=== PATIENT | female | born 2000 | race Caucasian/White ===

== ENCOUNTER → 2019-08-03 | Outpatient (CLI) | payer SELFPAY ==
[~2019-08-03] MED LIST: CATHETER FLUSH 10 ML SYR IV PRN; HOLD METFORMIN - RECEIVED CONTRAST 20 ML VIAL IV SCH; IOHEXOL 350 MG/ML 100 ML (OMNIPAQUE 350) VIAL IV ONE; NS 100 ML (IVPB) BAG IV ONE
--- NOTE | 2019-08-03 10:01 | Diagnostic Imaging Report ---
PROCEDURE: CT abdomen and pelvis with contrast. TECHNIQUE: Multiple contiguous axial images were obtained through the abdomen and pelvis after administration of intravenous contrast. Auto Exposure Controls were utilized during the CT exam to meet ALARA standards for radiation dose reduction. INDICATION: 2 weeks history of pelvic pain. No nausea or vomiting. No priors. FINDINGS: There is left adnexal cystic lesion measuring 4.1 x 3.0 cm likely ovarian, pelvic ultrasound suggested as its further evaluation. The uterus and right adnexa appeared normal. There is a small amount of pelvic free fluid in the cul-de-sac and posterior to the right adnexa. Urinary tracts unobstructed, nonfocal and nonacute. Liver, spleen, adrenals, pancreas and gallbladder all negative. The aortoiliac and mesenteric vessels patent and nonaneurysmal. The appendix visualized and normal. There is no diverticulitis. No ileus or bowel obstruction. IMPRESSION: 1. Left adnexal cyst measured 4.1 cm. Correlative ultrasound recommended. 2. Small volume pelvic free fluid likely physiologic. No other significant finding. Dictated by: Dictated on workstation # [id number]
== END ==
LOC: RAD 08:51
PROVIDERS: ATTEND Nurse Practitioner Family
DX: N83.8 Other noninflammatory disorders of ovary, fallopian tube and broad ligament (principal); R18.8 Other ascites
CPT/HCPCS: 74177

== ENCOUNTER 2020-01-03 17:30 | Emergency (ER) | payer SELFPAY ==
[~2020-01-03] VITALS: Ht 170 cm; Wt 123.0 kg
--- NOTE | 2020-01-03 17:58 | ED General ---
General Chief Complaint: Cough/Cold/Flu Symptoms Stated Complaint: COVID POSITIVE/CP/SOB Nursing Triage Note: PT STATES WAS TESTED COVID +YESTERDAY, PT STATES SX STARTED 3 DAYS PRIOR TO TEST. CO OF CHEST BURNING Nursing Sepsis Screen: Possible Sepsis Risk Source of Information: Patient Exam Limitations: No Limitations History of Present Illness Date Seen by Provider: Jan 03, 2020 Time Seen by Provider: 17:40 Initial Comments This 19-year-old young lady presents to the emergency room with COVID-19 symptoms. She has been ill for about 3 days and had a positive Covid test. She presents to the ER today because of increasing shortness of breath and chest pain, particularly burning on inspiration, that she rates as 8 out of 10. Vital signs are unremarkable. Patient is also anxious and is treated for anxiety. She has asthma which she has been successfully treating with her inhaler. She has no wheezing on exam today. Allergies and Home Medications Allergies Coded Allergies: No Allergy Information Available (Unverified , 08/03/19) Patient Home Medication List Home Medication List Reviewed: Yes Review of Systems Review of Systems Constitutional: fever EENTM: nose congestion Respiratory: see HPI, cough Cardiovascular: see HPI Gastrointestinal: no symptoms reported Genitourinary: no symptoms reported Musculoskeletal: muscle pain Skin: no symptoms reported Psychiatric/Neurological: See HPI, Anxiety Immunological/Allergic: no symptoms reported Past Ojstmna-Vlffyd-Adrvle Hx Past Med/Social Hx: Reviewed Nursing Past Med/Soc Hx Patient Social History Alcohol Use: Denies Use Recreational Drug Use: No Smoking Status: Never a Smoker Recent Foreign Travel: No Contact w/Someone Who Travel: No Recent Infectious Disease Expo: No Recent Hopitalizations: No Physical Abuse: No Sexual Abuse: No Past Medical History Surgeries: No Respiratory: Yes Asthma Cardiac: No Neurological: No : No Last Menstrual Period: Dec 31, 2019 Genitourinary: No Gastrointestinal: No Musculoskeletal: No Endocrine: No HEENT: No Cancer: No Psychosocial: Yes Anxiety Integumentary: No Physical Exam Vital Signs Vital Signs - First Documented 01/03/20 01/03/20 17:40 19:30 Temp 36.5 Pulse 107 Resp 22 B/P (MAP) 160/104 (122) Pulse Ox 98 O2 Delivery Room Air Capillary Refill : Less Than 3 Seconds Height, Weight, BMI Height: '" Weight: lbs. oz. kg; 42.00 BMI Method: General Appearance: WD/WN, Anxious HEENT: PERRL/EOMI, Normal ENT Inspection, Pharynx Normal Neck: Normal Inspection Respiratory: Lungs Clear, Normal Breath Sounds, No Accessory Muscle Use; No Wheezing Cardiovascular: Regular Rate, Rhythm, No Edema, No Murmur, Normal Peripheral Pulses Gastrointestinal: Normal Bowel Sounds, Non Tender, Soft Extremity: Normal Inspection, Non Tender, No Calf Tenderness, No Pedal Edema Neurologic/Psychiatric: Alert, Oriented x3, No Motor/Sensory Deficits, load out person II- XII Norm as Tested, Other (Anxious) Skin: Normal Color, Warm/Dry Progress/Results/Core Measures Suspected Sepsis Recent Fever Within 48 Hours: Yes Infection Criteria Present: Documented Infection New/Unexplained Altered Menta: No Sepsis Screen: Possible Sepsis Risk SIRS Temperature: Pulse: 107 Respiratory Rate: 22 Laboratory Tests 01/03/20 18:26: White Blood Count 3.5L Blood Pressure 160 /104 Mean: 122 Laboratory Tests 01/03/20 17:57: Creatinine 0.68, Total Bilirubin 0.2 01/03/20 18:26: Platelet Count 204 Results/Orders Lab Results Laboratory Tests Test 01/03/20 17:57 01/03/20 18:26 Range/Units D-Dimer 0.35 0.00-0.49 UG/ML Sodium Level 140 135-145 MMOL/L Potassium Level 4.1 3.6-5.0 MMOL/L Chloride Level 108 H 98-107 MMOL/L Carbon Dioxide Level 19 L 21-32 MMOL/L Anion Gap 13 5-14 MMOL/L Blood Urea Nitrogen 7 7-18 MG/DL Creatinine 0.68 0.60-1.30 MG/DL Estimat Glomerular Filtration Rate > 60 BUN/Creatinine Ratio 10 Glucose Level 94 70-105 MG/DL Calcium Level 8.5 8.5-10.1 MG/DL Corrected Calcium 8.3 L 8.5-10.1 MG/DL Total Bilirubin 0.2 0.1-1.0 MG/DL Aspartate Amino Transf (AST/SGOT) 44 H 5-34 U/L Alanine Aminotransferase (ALT/SGPT) 47 0-55 U/L Alkaline Phosphatase 81 40-136 U/L C-Reactive Protein High Sensitivity 0.34 0.00-0.50 MG/DL Total Protein 7.7 6.4-8.2 GM/DL Albumin 4.2 3.2-4.5 GM/DL Serum Test, Qualitative NEGATIVE NEGATIVE White Blood Count 3.5 L 4.3-11.0 10^3/uL Red Blood Count 3.67 L 3.80-5.11 10^6/uL Hemoglobin 11.1 L 11.5-16.0 g/dL Hematocrit 35 35-52 % Mean Corpuscular Volume 94 80-99 fL Mean Corpuscular Hemoglobin 30 25-34 pg Mean Corpuscular Hemoglobin Concent 32 32-36 g/dL Red Cell Distribution Width 12.5 10.0-14.5 % Platelet Count 204 130-400 10^3/uL Mean Platelet Volume 12.3 H 9.0-12.2 fL Immature Granulocyte % (Auto) 0 % Neutrophils (%) (Auto) 37 L 42-75 % Lymphocytes (%) (Auto) 52 H 12-44 % Monocytes (%) (Auto) 9 0-12 % Eosinophils (%) (Auto) 2 0-10 % Basophils (%) (Auto) 0 0-10 % Neutrophils # (Auto) 1.3 L 1.8-7.8 10^3/uL Lymphocytes # (Auto) 1.8 1.0-4.0 10^3/uL Monocytes # (Auto) 0.3 0.0-1.0 10^3/uL Eosinophils # (Auto) 0.1 0.0-0.3 10^3/uL Basophils # (Auto) 0.0 0.0-0.1 10^3/uL Immature Granulocyte # (Auto) 0.0 0.0-0.1 10^3/uL My Orders Orders - KEVIN PIEDRA MD Cbc With Automated Diff (01/03/20 17:51) Comprehensive Metabolic Panel (01/03/20 17:51) Hs C Reactive Protein (01/03/20 17:51) Fibrin Degradation Products (01/03/20 17:51) Hcg,Qualitative Serum (01/03/20 17:51) Chest 1 View, Ap/Pa Only (01/03/20 17:51) Ed Iv/Invasive Line Start (01/03/20 17:51) Ketorolac Injection (Toradol Injection) (01/03/20 19:00) Vital Signs/I&O Capillary Refill : Less Than 3 Seconds Blood Pressure Mean: 122 Progress Note #1: Time: 17:57 Progress Note Patient was seen and examined. Because of the increasing pleuritic chest pain we will do some basic labs including a D-dimer and obtain a chest x-ray. Progress Note #2: Progress Note Labs did not suggest coinfection. Chest x-ray was consistent with COVID-19. Patient was given reassurance and discharged. Diagnostic Imaging Diagonstic Imaging: Xray Plain Films/CT/US/NM/MRI: chest Comments NAME: [facility] REC#: [id number] PT STATUS: REG ER : 2000 PHYSICIAN: KEVIN PIEDRA MD ADMIT DATE: 01/03/20/ER Signed Date of Exam:01/03/20 CHEST 1 VIEW, AP/PA ONLY EXAMINATION: Chest radiograph, portable AP view. DATE: 01/03/2020 7:26 PM. INDICATION: 19-year-old female, Covid positive. Chest pain. COMPARISON: None. FINDINGS: Heart size and mediastinal contours are unremarkable. There is no identified pneumothorax. There is no large pleural effusion. There are streaky opacities in the right lower lobe. There is questionable hazy lung opacification. There are technical limitations of the exam relating to patient body habitus and difficulties with exposure. IMPRESSION: 1. Streaky opacities in the right lower lobe which may relate to atelectasis and/or infiltrate. 2. Questionable hazy lung opacities which could be seen with multifocal pneumonia including atypical infectious etiologies such is Covid-19. Dictated by: Dictated on workstation # [id number] Dict: 01/03/201926 Trans: 01/03/201999 [facility] [id number] Interpreted by: MORENO BERKOWITZ MD Electronically signed by: MORENO BERKOWITZ MD 01/03/201999 Departure Impression Primary Impression: Pleuritic chest pain Additional Impression: COVID-19 Disposition: 01 HOME, SELF-CARE Condition: Stable Departure-Patient Inst. Decision time for Depature: 18:51 Referrals: NO,LOCAL PHYSICIAN (PCP/Family) Primary Care Physician Patient Instructions: Coronavirus Disease 2019 (COVID-19) Overview Add. Discharge Instructions: You may continue using albuterol for wheezing or shortness of breath as previously prescribed. Drink plenty of clear liquids well-hydrated. Take a multivitamin for your overall nutrition. Some COVID regimens also encourage additional vitamin C, vitamin D, elderberry, and zinc. Change positions often and rotate between sleeping on your stomach and your back throughout the night. This will help with oxygenation and shortness of breath. Take ibuprofen up to 600 mg and Tylenol up to 1000 mg every 6 hours as needed for pain. Return to care if you have worsening of symptoms despite following these measures. All discharge instructions reviewed with patient and/or family. Voiced und erstanding. KEVIN PIEDRA MD Jan 03, 2020 17:58
[2020-01-03 18:24] LABS: ALBUMIN 4.2 GM/DL (3.2-4.5)
[2020-01-03 18:25] LABS: CHLORIDE 108 MMOL/L (98-107); POTASSIUM 4.1 MMOL/L (3.6-5.0); SODIUM 140 MMOL/L (135-145)
[2020-01-03 18:26] LABS: CALCIUM 8.5 MG/DL (8.5-10.1)
[2020-01-03 18:27] LABS: GLUCOSE 94 MG/DL (70-105); TOTAL PROTEIN 7.7 GM/DL (6.4-8.2)
[2020-01-03 18:28] LABS: CARBON DIOXIDE 19 MMOL/L (21-32)
[2020-01-03 18:29] LABS: BILIRUBIN,TOTAL 0.2 MG/DL (0.1-1.0)
[2020-01-03 18:30] LABS: ALKALINE PHOSPHATASE 81 U/L (40-136)
[2020-01-03 18:31] LABS: CREATININE SERUM 0.68 MG/DL (0.60-1.30); GFR ESTIMATED > 60
[2020-01-03 18:32] LABS: BUN/CREATININE RATIO 10
[2020-01-03 18:33] LABS: ALANINE AMINOTRANSFERASE 47 U/L (0-55)
[2020-01-03 18:43] LABS: BASOPHILS % (AUTO) 0 % (0-10); HEMOGLOBIN 11.1 g/dL (11.5-16.0); MONOCYTES # (AUTO) 0.3 10^3/uL (0.0-1.0)
[2020-01-03 18:45] LABS: EOSINOPHILS # (AUTO) 0.1 10^3/uL (0.0-0.3); EOSINOPHILS % (AUTO) 2 % (0-10); HEMATOCRIT 35 % (35-52); LYMPHOCYTES # (AUTO) 1.8 10^3/uL (1.0-4.0); LYMPHOCYTES % (AUTO) 52 % (12-44); MEAN CORPUSCULAR HEMOGLOBIN 30 pg (25-34); MEAN CORPUSCULAR HGB CONC 32 g/dL (32-36); MEAN CORPUSCULAR VOLUME 94 fL (80-99); MEAN PLATELET VOLUME 12.3 fL (9.0-12.2); MONOCYTES % (AUTO) 9 % (0-12); NEUTROPHILS # (AUTO) 1.3 10^3/uL (1.8-7.8); NEUTROPHILS % (AUTO) 37 % (42-75); PLATELET COUNT 204 10^3/uL (130-400); WHITE BLOOD COUNT 3.5 10^3/uL (4.3-11.0)
[2020-01-03] MEDS ORDERED: KETOROLAC 30 MG/ML VIAL IVP ONE (19:00)
[2020-01-03 19:30] VITALS: BP 152/98
--- NOTE | 2020-01-03 19:30 | Diagnostic Imaging Report ---
EXAMINATION: Chest radiograph, portable AP view. DATE: 01/03/2020 7:26 PM. INDICATION: 19-year-old female, Covid positive. Chest pain. COMPARISON: None. FINDINGS: Heart size and mediastinal contours are unremarkable. There is no identified pneumothorax. There is no large pleural effusion. There are streaky opacities in the right lower lobe. There is questionable hazy lung opacification. There are technical limitations of the exam relating to patient body habitus and difficulties with exposure. IMPRESSION: 1. Streaky opacities in the right lower lobe which may relate to atelectasis and/or infiltrate. 2. Questionable hazy lung opacities which could be seen with multifocal pneumonia including atypical infectious etiologies such is Covid-19. Dictated by: Dictated on workstation # [id number]
== END 2020-01-03 19:30 | disposition home or self-care (01) ==
LOC: EDUNIT# 17:30 → ER 17:31
DX: U07.1 COVID-19 (principal); R07.81 Pleurodynia; F41.9 Anxiety disorder, unspecified
CPT/HCPCS: 36415; 71045; 80053; 84703; 85025; 85379; 86141